=== PATIENT | male | born 1965 | race African-American/Black ===

== ENCOUNTER 2021-06-25 07:40 | Day surgery (SDC) | payer OTHER ==
[2021-06-25] MEDS ORDERED: SODIUM CHLORIDE 0.9% 500 ML 500 ML IV SCH (09:00)
[2021-06-25] MEDS ORDERED: NITROGLYCERIN SYRINGE 3 ML ONE (09:25)
[2021-06-25] MEDS ORDERED: HEPARIN 10,000 UNITS/10 ML VIAL ONE (09:25)
[2021-06-25] MEDS ORDERED: VERAPAMIL 5 MG/2 ML INJ ONE (09:25)
[2021-06-25] MEDS ORDERED: HEPARIN/NS 5000 UNIT/500ML 1,000 ML IR ONE (09:25)
[2021-06-25] MEDS ORDERED: MIDAZOLAM 2 MG/2 ML INJ ONE (09:26)
[2021-06-25] MEDS ORDERED: fentaNYL 100 MCG/2 ML INJ ONE (09:26)
[2021-06-25] MEDS ORDERED: LIDOCAINE (1%) 10 MG/1 ML VIAL 20 ML MDV ONE (09:26)
--- NOTE | 2021-06-25 10:59 | Cardiac Catherization Report ---
DATE OF SERVICE: 06/25/2021 CLINICAL INFORMATION: A 56-year-old male with severe coronary calcium score with abnormal stress test, hypertension, hyperlipidemia, is here for left heart catheterization. Procedure was done with moderate sedation started at 10:04, finished at 10:16. 12 minutes of moderate sedation. DESCRIPTION OF PROCEDURE: Procedure was done via the right radial artery, sterile technique and local anesthesia. A 6-[place]jiboutian radial sheath inserted. Left system engaged with JL3.5 catheter. Calcification noted on fluoroscopy. Left main is a medium caliber vessel, patent, and bifurcates into medium caliber LAD. Proximal was patent. There is a 20 mm worth of calcified 90% lesion. Then, diagonal 1 is a medium caliber vessel, patent. Then, after diagonal #1, there is a focal 40% mid LAD and the rest of the LAD is patent. Circumflex is a vamgi-td-zbujyf caliber vessel that is patent in the AV groove, goes into a medium caliber ramus or high OM1 that has a proximal focal 95% lesion. The AV groove portion of the circumflex is a small caliber vessel. Sluggish flow. KATE 2 flow noted. RCA engaged with a JR4 catheter, is a large, dominant vessel, diffusely diseased, 10-20%, vessel bifurcates into medium caliber PDA, PLV and multiple branches. PDA has diffuse disease distally of a small-caliber vessel, less than 2 mm, 50%-60%. LV gram done in PORTUGUESE and SOTO view shows normal LV function, EF 55-60%, LVEDP at 30 mmHg, LV is 138, aortic is 138/90. No gradient across the aortic valve on pullback. The 5-Djiboutian catheters all taken over guidewire. A 6-Djib[place]ian radial sheath was discontinued. Radial band applied. No hematoma. No bleeding. SUMMARY: Left main patent, LAD proximal, mid calcified 95% lesion. Diagonal 1 patent, mid LAD 40%, circumflex patent, becomes sluggish flow in the AV groove. Ramus or high OM1 has a focal 95% lesion. RCA is a large, dominant vessel, diffuse disease, 10-20%. PDA patent, but diffusely diseased in the lqr-ya-eledsz small caliber vessel. PLV patent with mild luminal irregularities. Normal left ventricular function. RECOMMENDATIONS: The patient will be loaded with Plavix. Referred for atherectomy of the LAD and ramus. Discussed this with the patient and the patient's family in detail. TID: [id number] RECEIPT: [id number] EMIR/JUDAH
[2021-06-25] MEDS ORDERED: HYDROcodone/ACETAMINOPHEN 5-325 MG TAB PO PRN (11:00)
[2021-06-25] MEDS ORDERED: traMADol 50 MG TAB PO PRN (11:30)
--- NOTE | 2021-06-25 11:32 | Short Stay Summary ---
Short Stay Documentation Date of service: 06/25/21 - History H&P: obtained from office - Allergies and Medications Current Medications: Allergies No Known Allergies Allergy (Unverified 06/25/21 08:48) Home Medications Medication Instructions Recorded Confirmed Last Taken Type Aspirin EC [Halfprin EC] 81 mg PO QDAY 06/25/21 06/25/21 06/25/21 History 81 MG AtorvaSTATin [Lipitor] 20 mg PO QHS 06/25/21 06/25/21 06/24/21 History 20 MG Clopidogrel [Plavix] 75 mg PO QDAY #30 tablet 06/25/21 Unknown Rx Fenofibrate 160 mg PO DAILY 06/25/21 06/25/21 06/24/21 History 160 MG Gabapentin [Neurontin] 600 mg PO Q8H 06/25/21 06/25/21 06/24/21 History 600 MG Losartan [Cozaar] 50 mg PO QDAY 06/25/21 06/25/21 06/24/21 History 50 MG amLODIPine [Norvasc] 5 mg PO DAILY 06/25/21 06/25/21 06/24/21 History 5 MG Active Medications Hydrocodone Bitart/Acetaminophen (Hydrocodone/Acetaminophen 5-325 Mg Tab) 1 each PO Q4H PRN PRN Reason: Pain, Moderate (4-6) Sodium Chloride (Nacl 0.9% 500 Ml) 500 mls @ 50 mls/hr IV DIRECT DEVIN Stop: 06/25/21 18:59 Tramadol HCl (Tramadol 50 Mg Tab) 50 mg PO Q4H PRN PRN Reason: Pain, Mild (1-3) - Physical exam Integumentary: other (Right radial dressing clean dry intact. No bleeding, no hematoma noted.) - Brief post op/procedure progress note Date of procedure: 06/25/21 Pre-op diagnosis: Abnormal Stress Test Post-op diagnosis: other (Coronary Artery Disease) Anesthesia: local Estimated blood loss: minimal - Hospital course Hospital course: Patient presented for cardiac catheterization today. He was found to have coronary artery disease. Left main patent, LAD proximal, mid calcified 95% lesion. Additionally, ramus or high OM1 has focal 95% lesion. Please see cardiac catheterization report for full summary. Patient was loaded with Plavix. He will be sent home with prescription for Plavix 75 mg PO Qday. Furthermore, he will be referred for atherectomy of the LAD and ramus. Patient right radial site clean dry and intact with no bleeding or hematoma. Plan for discharge home this afternoon. - Disposition Condition at discharge: Good Disposition: 01 HOME / SELF CARE / HOMELESS - Discharge Diagnoses (1) Coronary artery disease Status: Acute (2) Hyperlipemia Status: Acute (3) Hypertension Status: Acute (4) Sleep apnea Status: Acute Short Stay Discharge Plan Activity: advance as tolerated Diet: low fat, low cholesterol, low salt Wound: keep clean and dry, per your surgeon's advice Follow up with: PRIMARY MD JYOTHI [Primary Care Provider] - 7 Days JEREMIAH NATHAN MD [Staff Physician] - 07/15/21 3:15 pm (F/u at [facility] ) Prescriptions: Clopidogrel [Plavix] 75 mg PO QDAY #30 tablet
[2021-06-25 13:32] VITALS: BP 120/77
--- NOTE | 2021-06-26 14:23 | Electrocardiograph Report ---
[facility] [place] Test Date: 2021-06-25 Test Time: 09:06:57 Pat Name: CAROLINA GARZA Department: Room: Gender: M [employer] Operator: EDIS : 1965 Requested By: JEREMIAH NATHAN Order Number: [id number] Reading MD: Kymberly Moss Measurements Intervals [place] Rate: 71 P: 26 DC: 170 QRS: 51 QRSD: 85 T: 16 QT: 378 QTc: 410 Interpretive Statements Sinus rhythm Normal ECG No previous ECG available for comparison Electronically Signed On 06-26-2021 14:23:28 EDT by Kymberly Moss
== END 2021-06-25 14:00 | disposition home or self-care (01) ==
LOC: CATHLABREC 07:40
PROVIDERS: ATTEND Internal Medicine
DX: R94.39 Abnormal result of other cardiovascular function study (principal); I25.10 Atherosclerotic heart disease of native coronary artery without angina pectoris; I10 Essential (primary) hypertension; G47.30 Sleep apnea, unspecified; E78.5 Hyperlipidemia, unspecified; M19.90 Unspecified osteoarthritis, unspecified site; Z79.899 Other long term (current) drug therapy; Z79.82 Long term (current) use of aspirin
CPT/HCPCS: 93005; 93458; 99156; C1894; J1644; J1815; J2250; J3010; J3490; J7040; Q9967